=== PATIENT | male | born 1985 | race Caucasian/White ===

== ENCOUNTER 2016-11-18 07:16 | Day surgery (SDC) | payer BC ==
[~2016-11-18 07:16] MED LIST: Dextrose 5%-0.45% NaCl 1,000 ML IV SCH; Midazolam 1 MG/ML 2 ML SDV ONE; Sodium Chloride 0.9% 10 ML Syringe FLUSH PRN; fentaNYL 100 MCG/2 ML SDV ONE
[2016-11-18] MEDS ORDERED: Midazolam 1 MG/ML 2 ML SDV IV ONE ×6 (08:02→16:06)
[2016-11-18] MEDS ORDERED: fentaNYL 100 MCG/2 ML SDV IV ONE ×3 (08:02→16:06)
[2016-11-18 10:14] VITALS: BP 132/90
--- NOTE | 2016-11-18 13:37 | OR ---
DATE: 11/18/2016 PROCEDURES: Total colonoscopy, terminal ileoscopy, and multiple pinch biopsies. INSTRUMENT USED: CF-H180AL Olympus video colonoscope. PREMEDICATIONS: Fentanyl 100 mcg intravenous, Versed 3 mg intravenous. The procedure was done under pulse oximetry, BP recording, and telecommunications officer. INDICATION: The patient with longstanding ulcerative colitis, on therapy. Surveillance colonoscopy examination is done for detection of any polypoid lesions and removal. Assessment to be made as fine mucosal healing, biopsies as indicated. Initial rectal exam was unremarkable. Rigid anoscopy was normal. The colonoscope was passed with ease up to and beyond the ileocecal junction to visualize normal-appearing terminal ileum. Photographs were taken of the normal- appearing rectum. Transverse colon showing pseudopolyps as well as cecum. No bleeding was noted from any of the visualized areas at the commencement of the examination. No stricture. No vascular ectasia. No large isolated ulcerations seen. Probing the proximal sides of folds and flexures, using adequate distention and clearing of the stool material, withdrawal of the scope was made. Multiple pinch biopsies were taken from the proximal transverse colon, mid transverse colon with pseudopolyp, mid descending colon, as well as rectosigmoid and sent for histopathology. No bleeding was noted from any of the visualized areas at the completion of examination. IMPRESSION: Ulcerative colitis. The patient tolerated the procedure well. [facility] /[id number]
== END 2016-11-18 10:24 | disposition home or self-care (01) ==
LOC: DL.ENDO 07:16
PROVIDERS: ATTEND Internal Medicine Gastroenterology
DX: K51.90 Ulcerative colitis, unspecified, without complications (principal); D12.3 Benign neoplasm of transverse colon; K51.40 Inflammatory polyps of colon without complications
CPT/HCPCS: 45380; J2250; J3010; J7042

== ENCOUNTER 2017-11-25 07:03 | Day surgery (SDC) | payer BC ==
[~2017-11-25 07:03] MED LIST changes: -Dextrose 5%-0.45% NaCl 1,000 ML IV SCH
[2017-11-25] MEDS ORDERED: fentaNYL 100 MCG/2 ML SDV IV ONE (07:04)
[2017-11-25] MEDS ORDERED: Midazolam 1 MG/ML 2 ML SDV IV ONE (07:04)
[2017-11-25] MEDS: Dextrose 5%-0.45% NaCl 1,000 ML IV SCH (07:23)
[2017-11-25] MEDS: fentaNYL 100 MCG/2 ML SDV IV ONE ×2 (08:09)
[2017-11-25] MEDS: Midazolam 1 MG/ML 2 ML SDV IV ONE ×6 (08:10→08:14)
--- NOTE | 2017-11-25 10:39 | OR ---
DATE: 11/25/2017 PROCEDURES: Total colonoscopy and multiple pinch biopsies. INSTRUMENT USED: CF-H180AL Olympus video colonoscope. PREMEDICATIONS: Fentanyl 100 mcg intravenous, Versed 4 mg intravenous. Nasal 2 L O2 cannula. The procedure was done under pulse oximetry, BP recording, and air sampling and monitoring. INDICATION: The patient with longstanding ulcerative colitis, on therapy. Colonoscopic examination is done for detection of any polypoid lesions and removal. Biopsies to be obtained for any evidence of dysplasia. Mucosal healing to be assessed. Endoscopic hemostasis therapy if needed. DESCRIPTION OF PROCEDURE: Initial rectal exam was unremarkable. Rigid anoscopy was normal. The colonoscope was passed with ease. Photographs were taken of the normal- appearing rectum. The scope was passed with ease up to the ileocecal area. Photographs were taken of the normal-appearing cecum identified by double-bulged ileocecal folds. No bleeding was noted from any of the visualized areas at the commencement of the examination. Bowel preparation was found to be adequate. In the descending colon, numerous 3-mm sized benign-appearing "pseudopolyps" noted. Photograph was taken of the area. Multiple pinch biopsies were taken from the largest pseudopolyp and sent for histopathology. No stricture. No vascular ectasia. No large isolated ulcerations seen. Probing the proximal sides of folds and flexures, using adequate distention and clearing up the stool material, withdrawal of the scope was made. Numerous 4-quadrant biopsies were taken at 10 cm distance apart from the cecum to the rectum, and the biopsies obtained are pooled into bags: 1. Cecum and ascending colon. 2. Transverse colon. 3. Descending colon. 4. Rectosigmoid. No bleeding was noted from any of the visualized areas at the completion of examination. IMPRESSION: Ulcerative colitis. The patient tolerated the procedure well. [facility] /[id number]
[2017-11-25 13:32] VITALS: BP 119/74
== END 2017-11-25 10:47 | disposition home or self-care (01) ==
LOC: DL.ENDO 07:03
PROVIDERS: ATTEND Internal Medicine Gastroenterology
DX: K51.90 Ulcerative colitis, unspecified, without complications (principal); K51.40 Inflammatory polyps of colon without complications; E66.09 Other obesity due to excess calories
CPT/HCPCS: 45380; J7042; J2250; J3010